=== PATIENT | female | born 1995 | race Caucasian/White ===

== ENCOUNTER 2018-10-08 14:31 | Observation (INO) | payer OTHER ==
[2018-10-08] MEDS ORDERED: Albuterol-Ipratrop 3 mg / 0.5 (3 ml) UD ONE ×2 (14:40→15:22)
[2018-10-08] MEDS ORDERED: Albuterol-Ipratrop 3 mg / 0.5 (3 ml) UD INH STA ×4 (14:47→21:48)
[2018-10-08] MEDS ORDERED: Sodium Chloride 0.9% 1,000 ML IV ONE (15:08)
[2018-10-08] MEDS ORDERED: Sodium Chloride 0.9% 1,000 ML ONE (15:21)
--- NOTE | 2018-10-08 15:56 | C.PDOC ---
History Of Present Illness 23 year old female presents to he emergency department with complaints of cough and wheezing. Patient has a history of asthma but states that only when she gets infections. Her last infection was pneumonia 3 years ago. Patient states that she was never hospitalized, and denies having any nebulizer machines at home. Time Seen by Provider: 10/08/18 15:04 Chief Complaint (Nursing): Shortness Of Breath History Per: Patient History/Exam Limitations: no limitations Onset/Duration Of Symptoms: Hrs Current Respiratory Medications: None Associated Symptoms: Other (cough, wheezing) Past Medical History Reviewed: Historical Data, Nursing Documentation, Vital Signs Vital Signs: Last Vital Signs Temp 98.6 F 10/08/18 14:43 Pulse 126 H 10/08/18 14:43 Resp 24 10/08/18 15:15 BP 126/88 10/08/18 14:43 Pulse Ox 96 10/08/18 15:15 Primary Care Provider: Varun Garibay Surg - Medical History PMH: No Chronic Diseases Surgical History: No Surg Hx Family History: States: No Known Family Hx - Social History Hx Tobacco Use: No Hx Alcohol Use: No Hx Substance Use: No - Immunization History Hx Influenza Vaccination: No Review Of Systems Except As Marked, All Systems Reviewed And Found Negative. Constitutional: Negative for: Fever, Chills, Weakness Cardiovascular: Negative for: Chest Pain Respiratory: Positive for: Cough, Wheezing. Negative for: Shortness of Breath Gastrointestinal: Negative for: Nausea, Vomiting, Abdominal Pain, Diarrhea Genitourinary: Negative for: Dysuria, Frequency Physical Exam - Physical Exam Appears: Non-toxic, In Acute Distress (moderate respiratory distress), Other (young female) Skin: Normal Color, Warm, Dry Head: Atraumatic, Normacephalic Eye(s): bilateral: Normal Inspection, PERRL, EOMI Nose: Normal Oral Mucosa: Moist Neck: Normal, Supple Chest: Symmetrical, No Tenderness Cardiovascular: Rhythm Regular, No Murmur Respiratory: No Rales, No Rhonchi, Wheezing (expiratory and inspiratory wheezing), No Other (egophony) Gastrointestinal/Abdominal: Soft, No Tenderness Extremity: Normal ROM Neurological/Psych: Oriented x3, Normal Speech, Normal Cognition ED Course And Treatment - Laboratory Results Result Diagrams: 10/08/18 16:00 10/08/18 16:00 Lab Interpretation: Abnormal ECG: Interpreted By Me ECG Rhythm: Sinus Tachycardia ECG Interpretation: Abnormal Rate From EC O2 Sat by Pulse Oximetry: 96 (RA) Pulse Ox Interpretation: Normal - Radiology CXR: Interpreted by Me, Viewed By Me, Read By Radiologist CXR Interpretation: Yes: No Acute Disease Progress Note: mild improved, only. no nebs machines @ home. empiric abx for resp tract based on pt's story that asthma exacerbations only with URI's, and leukocytosis with L shift Reevaluation Time: 16:34 Reassessment Condition: Improved - Physician Consult Information Outcome Of Conversation: 1600: d/w Dr. Suarez, Hospitalist, ok to Tele Obs. Critical Care Time - Critical Care Note Total Time (in mins): 90 Documented critical care: time excludes all time spent performing seperately billable procedures. Medical Decision Making Medical Decision Making: Plan: EKG Chemistry CBC CXR Albuterol Solu-Medrol NaCl IV Fluids Zithromax Rocephin Blood Culture HCG Qualitative Urine Urinalysis Disposition Doctor Will See Patient In The: Hospital Counseled Patient/Family Regarding: Studies Performed, Diagnosis - Disposition Disposition: HOSPITALIZED Disposition Time: 16:35 Condition: FAIR - Clinical Impression Clinical Impression: Reactive airway disease - Scribe Statement The provider has reviewed the documentation as recorded by the Scribe (Marcos Rehman) Provider Attestation: All medical record entries made by the Scribe were at my direction and personally dictated by me. I have reviewed the chart and agree that the record accurately reflects my personal performance of the history, physical exam, medical decision making, and the department course for this patient. I have also personally directed, reviewed, and agree with the discharge instructions and disposition.
--- NOTE | 2018-10-08 16:11 | CP.PCM.HP ---
History of Present Illness - History of Present Illness History of Present Illness: PGY1 Medicine H and P for Dr. Suarez This is a 23 year old female with PMH of pneumonia 2 years ago, seasonal allergies who presented to the ED with complaints of wheezing and coughing. Pt started sneezing a lot on tuesday and thought she was having her regular seasonal allergies. Pt started taking OTC Benadryl, 2 tabs at night, that helped her go to sleep. Pt states that she went out drinking on Tuesday and drank a lot of alcohol. She woke up Tuesday morning with a sore throat, back pain and c ough. She proceeded to wake up today with worsening back pain, audible wheezing and coughing productive of yellow/green sputum with specks of blood (hemoptysis resolved). Pt's back pain is upper and middle back pain described as a "crushi ng" sensation. Pt also reports midsternal chest pain when coughing/taking deep breaths. Pt started getting SOB today when walking up the stairs, which worsened when laying down. Pt previously had pneumonia in 2016, but states this feels different. The pt denies any recent travel, car rides longer than 4 hours, diet changes, history of asthma, family history of lung problems, hx of blood clots leg pain or swelling, new detergents, new soaps, new perfume, no pets, headache, nighttime awakenings, visual changes, abdominal pain, n/v/d, dysuria, trauma, numbness or tingling or rash. Recent smoking of cigarettes. PMD: None PMH: pneumonia 2 years ago, seasonal allergies PSH: Tonsillectomy age 12 Meds: Beandryl 25 mg PO PRN as above Allx: NKDA FHx: Grandmother with DM SHx: social etoh, social cigarettes. Denies illicit drug use. Lives with male partner for 4 yearsa, no kids. Born in [place] and up to date on vaccinations. Partner was born in [place]. 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 Present on Admission - Present on Admission Any Indicators Present on Admission: No Review of Systems - Review of Systems All systems: reviewed and no additional remarkable complaints except (as per HPI) Past Patient History - Infectious Disease Hx of Infectious Diseases: None - Past Social History Smoking Status: Never Smoked - PSYCHIATRIC Hx Substance Use: No - SURGICAL HISTORY Hx Surgeries: No Meds Allergies/Adverse Reactions: Allergies Allergy/AdvReac Type Severity Reaction Status Date / Time No Known Allergies Allergy Verified 06/22/15 16:14 Physical Exam - Constitutional Appears: Non-toxic, No Acute Distress - Head Exam Head Exam: ATRAUMATIC, NORMAL INSPECTION - Eye Exam Eye Exam: EOMI, Normal appearance - ENT Exam ENT Exam: Mucous Membranes Moist - Respiratory Exam Respiratory Exam: Clear to Auscultation Bilateral, Wheezes (inspiratory and expiratory wheezes). absent: Decreased Breath Sounds, Rales, Rhonchi, Res piratory Distress, Stridor - Cardiovascular Exam Cardiovascular Exam: Tachycardia, +S1, +S2 - GI/Abdominal Exam GI & Abdominal Exam: Normal Bowel Sounds, Soft. absent: Diminished Bowel Sounds, Distended, Firm, Guarding, Rebound, Rigid, Tenderness - Extremities Exam Extremities exam: Positive for: normal capillary refill, normal inspection, pedal pulses present. Negative for: calf tenderness, pedal edema, tenderness - Back Exam Back exam: NORMAL INSPECTION, paraspinal tenderness (letf midthoracic tenderness to plapation with hypertonicity). absent: CVA tenderness (L), CVA tenderness (R), rash noted - Neurological Exam Neurological exam: Alert, Oriented x3 - Psychiatric Exam Psychiatric exam: Anxious, Normal Affect, Normal Mood - Skin Skin Exam: Dry, Normal Color, Warm Results - Vital Signs Recent Vital Signs: Last Vital Signs Temp 98.6 F 10/08/18 14:43 Pulse 126 H 10/08/18 14:43 Resp 24 10/08/18 15:15 BP 126/88 10/08/18 14:43 Pulse Ox 96 10/08/18 15:56 - Labs Result Diagrams: 10/08/18 16:00 10/08/18 16:00 Assessment & Plan (1) Wheezing Assessment and Plan: Likely allergic component CXR shows no focal infiltrate of effusion. Mild venous congestion. s/p solumedrol 125 mg IM x2 in the ED s/p albuterol/ipratropium 6 mL x3 in the ED s/p rocephin 1 g IVPB x1, Zithromax 500 mg IVPB x1 in the ED s/p NS IVF 1L bolus in the ED Will receive Magnesium 1g IVPB x2 Will start Solumedrol 40 mg IV q12 O2 via NC Leukocytosis of 14.9 likely reactive/secondary to corticosteroids, afebrile, but tachycardic Eosinophil percentage is elevated at 4.1 F/u blood culture, IgE, total eosinophil count, ABG with shock panel, peak flows Status: Acute (2) Tachycardia Assessment and Plan: No longer on albuterol after receiving meds as above EKG shows sinus tachycardia Pt on tele-monitor Mg is 1.6, will receive Magnesium 1g x2 as above UDS negative, Urine HCG is negative Continue to monitor Status: Acute (3) Prophylactic measure Assessment and Plan: Heparin 5000 u SC q12 Protonix 40 mg IVP daily Regular diet Status: Acute - Assessment and Plan (Free Text) Assessment: This is a 23 year old female with PMH of pneumonia 2 years ago, seasonal allergies who presented to the ED with complaints of wheezing and coughing. Noted to have worsening sinus tachycardia after albuterol administration. Case discussed with Dr. Daniela Arvizu PGY1
[2018-10-08 16:12] LABS: HCG,QUALITATIVE URINE NEGATIVE (NEGATIVE)
[2018-10-08 16:15] LABS: BASO # 0.1 K/uL (0.0-0.2); BASO % 0.6 % (0.0-2.0); EOS # 0.6 K/uL (0.0-0.7); EOS % 4.1 % (0.0-4.0); HEMOGLOBIN 13.6 g/dL (11.0-16.0); LYMPH # 2.5 K/uL (1.0-4.3); LYMPH % 17.3 % (20.0-40.0); MEAN CORPUSCULAR HEMOGLOBIN 28.9 pg (27.0-31.0); MEAN CORPUSCULAR HGB CONC 33.9 g/dL (33.0-37.0); MEAN PLATELET VOLUME 7.8 fL (7.2-11.7); MONO # 0.9 K/uL (0.0-0.8); MONO % 6.3 % (0.0-10.0); NEUT # 10.5 K/uL (1.8-7.0); NEUT % 71.7 % (50.0-75.0); RBC 4.7 Mil/uL (3.80-5.20); RED CELL DISTRIBUTION WIDTH 13.6 % (11.5-14.5); WHITE BLOOD COUNT 14.7 K/uL (4.8-10.8)
[2018-10-08 16:16] LABS: SQUAMOUS EPITHIAL 9 /hpf (0-5); URINE BACTERIA FEW (<OCC); URINE BILIRUBIN NEGATIVE (NEGATIVE); URINE BLOOD NEGATIVE (NEGATIVE); URINE CLARITY Hazy (Clear); URINE COLOR Yellow (YELLOW); URINE GLUCOSE (UA) NORMAL (Normal); URINE LEUKOCYTE ESTERASE TRACE Leu/uL (Negative); URINE PROTEIN NEGATIVE (NEGATIVE); URINE UROBILINOGEN NORMAL mg/dL (0.2-1.0)
--- NOTE | 2018-10-08 16:16 | RAD ---
Chest x-ray two views HISTORY: Shortness of breath. Comparison: None available. Findings: No focal infiltrate or effusion. Mild venous congestion. Prominent bibasilar breast and nipple shadows. Heart size within limits. Impression: No focal infiltrate or effusion. Mild venous congestion. Prominent bibasilar breast and nipple shadows.
[2018-10-08 16:28] LABS: ALB/GLOB RATIO 1.4 (1.0-2.1); ALBUMIN 4.6 g/dL (3.5-5.0); ALT/SGPT 26 U/L (9-52); AST/SGOT 33 U/L (14-36); BLOOD UREA NITROGEN 11 mg/dL (7-17); CALCIUM 9.8 mg/dl (8.6-10.4); GFR NON-AFRICAN AMERICAN > 60
[2018-10-08] MEDS ORDERED: Azithromycin 500 MG in Sodium Chloride 0.9% 250 ML IVPB STA (16:31)
[2018-10-08] MEDS ORDERED: cefTRIAXone IV 1 gm in Dextros 50 ML IV ONE (16:31)
[2018-10-08 16:41] LABS: BARBITURATES, UR NEGATIVE (NEGATIVE); BENZODIAZEPINES, UR NEGATIVE (NEGATIVE); OPIATES, UR NEGATIVE (NEGATIVE); PHENCYCLIDINE, UR NEGATIVE (NEGATIVE)
[2018-10-08] MEDS ORDERED: MethylPREDNISolone 40 mg Vial IVP STA (17:09)
[2018-10-08] MEDS: Magnesium Sulfate 1 gm in D5W 1 GM/100 ML BAG IVPB SCH ×2 (18:03→19:57)
[2018-10-08] MEDS: Pantoprazole 40 mg EC Tab PO SCH (18:07)
[2018-10-08 18:48] LABS: ABG ALLEN TEST PO; ARTERIAL BLOOD GAS HCO3 19.7 mmol/L (21-28); ARTERIAL BLOOD GAS O2 SAT 96.9 % (95-98); ARTERIAL BLOOD GAS PCO2 29 mm/Hg (35-45); ARTERIAL BLOOD GAS PH 7.38 (7.35-7.45); ARTERIAL BLOOD GAS PO2 74 mm/Hg (80-100); ARTERIAL BLOOD GAS TCO2 18.1 mmol/L (22-28)
[2018-10-08] MEDS: Budesonide 0.25 mg/2 ml Inhal Susp UD INH SCH (19:04)
[2018-10-08] MEDS: Ipratropium 0.02% Inhal Soln (0.5 mg/2.5 ml) UD IH SCH (19:04)
[2018-10-08 20:14] LABS: PARTIAL THROMBOPLASTIN TIME 31.2 SECONDS (21-34); PROTHROMBIN TIME 11.3 SECONDS (9.7-12.2)
[2018-10-08] MEDS ORDERED: Ipratropium 0.02% Inhal Soln (0.5 mg/2.5 ml) UD IH SCH (20:15)
[2018-10-08 20:22] LABS: D DIMER < 200 ng/mlDDU (0-243)
[2018-10-08 20:25] LABS: CK-MB 0.78 ng/mL (0.0-3.38)
[2018-10-08] MEDS: MethylPREDNISolone 40 mg Vial IVP SCH (21:20)
[2018-10-08] MEDS ORDERED: Iodixanol 320 MG/ML 100 ML BOTTLE IV ONE (23:49)
[2018-10-09] MEDS: Ipratropium 0.02% Inhal Soln (0.5 mg/2.5 ml) UD IH SCH ×4 (03:00→19:18)
[2018-10-09] MEDS: Budesonide 0.25 mg/2 ml Inhal Susp UD INH SCH ×2 (07:20→19:17)
[2018-10-09 07:21] LABS: BASO # 0.1 K/uL (0.0-0.2); BASO % 0.2 % (0.0-2.0); LYMPH # 1.3 K/uL (1.0-4.3); LYMPH % 5.7 % (20.0-40.0); MEAN CELL VOLUME 85.2 fL (81.0-99.0); MEAN CORPUSCULAR HEMOGLOBIN 28.8 pg (27.0-31.0); MEAN CORPUSCULAR HGB CONC 33.8 g/dL (33.0-37.0); MEAN PLATELET VOLUME 7.8 fL (7.2-11.7); MONO # 0.5 K/uL (0.0-0.8); MONO % 2.4 % (0.0-10.0); NEUT # 20.3 K/uL (1.8-7.0); NEUT % 91.7 % (50.0-75.0); PLATELET COUNT 399 K/uL (130-400); RBC 4.53 Mil/uL (3.80-5.20); RED CELL DISTRIBUTION WIDTH 13.9 % (11.5-14.5)
[2018-10-09 07:25] LABS: WHITE BLOOD COUNT 22.2 K/uL (4.8-10.8)
--- NOTE | 2018-10-09 07:46 | CP.PCM.PN ---
<Dara Saleh V - Last Filed: 10/09/18 16:15> Objective - Vital Signs/Intake and Output Vital Signs (last 24 hours): Temp Pulse Resp BP Pulse Ox 98.0 F 80 18 109/72 100 10/09/18 07:00 10/09/18 07:45 10/09/18 07:00 10/09/18 07:00 10/09/18 12:00 - Medications Medications: Current Medications Acetaminophen (Tylenol 325mg Tab) 650 mg PO Q6 PRN PRN Reason: fever/pain Last Admin: 10/09/18 10:06 Dose: 650 mg Budesonide (Pulmicort Respules) 0.25 mg INH RQ12 [facility] Last Admin: 10/09/18 07:20 Dose: Not Given Heparin Sodium (Porcine) (Heparin) 5,000 units SC Q12 [facility] Last Admin: 10/09/18 10:03 Dose: 5,000 units Moxifloxacin HCl (Avelox Iv 400mg/250ml Ns) 400 mg in 250 mls @ 167 mls/hr IVPB Q24H [facility]; Protocol Ipratropium Pickett (Atrovent) 0.5 mg IH RQ6 [facility] Last Admin: 10/09/18 13:20 Dose: 0.5 mg Ipratropium Pickett (Atrovent) 0.5 mg IH Q15MIN [facility] Stop: 10/09/18 20:16 Methylprednisolone (Solu-Medrol) 40 mg IVP Q12 [facility] Last Admin: 10/09/18 10:03 Dose: 40 mg Montelukast Sodium (Singulair) 10 mg PO HS [facility] Last Admin: 10/08/18 22:12 Dose: 10 mg Ondansetron HCl (Zofran Inj) 4 mg IVP Q8H PRN PRN Reason: Nausea/Vomiting Pantoprazole Sodium (Protonix Ec Tab) 40 mg PO DAILY [facility] Last Admin: 10/09/18 10:03 Dose: 40 mg Saccharomyces Boulardii (Florastor) 250 mg PO BID [facility] - Labs Labs: 10/09/18 14:06 10/09/18 07:08 PT 11.3 SECONDS (9.7-12.2) 10/08/18 19:57 INR 1.0 10/08/18 19:57 APTT 31.2 SECONDS (21-34) 10/08/18 19:57 Attending/Attestation - Attestation I have personally seen and examined this patient.: Yes I have fully participated in the care of the patient.: Yes I have reviewed all pertinent clinical information, including history, physical exam and plan: Yes Notes (Text): This is 23 year old with prior medical history of seasonal allergies and prior history of pneumonia 2 years ago comes in to the hospital following a night out with her coworkers wherein she did multiple shots of tequila and 3-4 8 ounce of beers. Patient reports this week her allergies have been acting up with rhinorrhea and nasal drip and required 3 dose of Benadryl during the week. Patient reports muscle soreness over the back area. Noted lactic acid on admission elevated 4.8 and improved slightly to 3.8. suspecting dehydration given recent alcohol use and mild muscle aches and pain. Will check cpk to check rhabdomyolysis. Repeat EKG today shows NSR. Patient to benefit from IV hydration to provide symptom relief from lactic acidosis. We are also awaiting blood cultures which were drawn on admission. CT Chest (10/08/18): patchy ground glass opacities in the right upper, right lower, left lower, and left upper lobe. no pe. no thoracic aortic aneurysm. Will start patient on Avelox to cover for pneumonia. Will observe patient on telemetry for 24 hours. f/u repeat lactate, blood cultures from admission, and serologies for Strep, pneumo, legionella, and mycoplasma IgM 1) Bronchitis Possible Pneumonia SIRS Assessment/Plan SIRS (leukocytosis, tachycardia) and lactic acid (4.8) CT Chest (10/08/18): patchy ground glass opacities in the right upper, right lower, left lower, and left upper lobe. no pe. no thoracic aortic aneurysm. Will start patient on Avelox to cover for pneumonia. f/u repeat lactate, blood cultures from admission, and serologies for Strep, pneumo, legionella, and mycoplasma IgM Avelox 400mg IV daily (active since 10/09/18) Blood culture (10/08/18) pending Throat Culture (10/08/18): pending Serum IGE pending 2) Tachycardia Assessment/Plan CT Chest (10/08/18): patchy ground glass opacities in the right upper, right lower, left lower, and left upper lobe. no pe. no thoracic aortic aneurysm. Will start patient on Avelox to cover for pneumonia. unclear if related to nebulizer versus respiratory distress given this is the season for her allergies to worsen Troponin negative 3) Respiratory Distress Assessment/Plan CT Chest (10/08/18): patchy ground glass opacities in the right upper, right lower, left lower, and left upper lobe. no pe. no thoracic aortic aneurysm. Will start patient on Avelox to cover for pneumonia. f/u repeat lactate, blood cultures from admission, and serologies for Strep, pneumo, legionella, and mycoplasma IgM Atrovent PRN patient recommended when she is stable from hospital to f/u with PMD for outpatient PFTs; she does not have history of asthma, she is not a smoker but her boyfriend is a smoker and lives with him, 2nd hand smoke exposure 4) Tobacco Exposure Assessment/Plan Counselled at bedside 5) Alcohol Use Assessment/Plan Advised against binge drinking Patient is not an alcoholic Patient is not in acute DTs 6) Seasonal Allergies Assessment/Plan pending serum IgE Start Claritin reduce allergic component 7) Prophylactic measure Ambulatory DVT ppx: heparin 5000 units [id number] GI ppx:protonix 40mg PO daily IV hydration Disposition: Will observe patient on telemetry for 24 hours. f/u repeat lactate, blood cultures from admission, and serologies for Strep, pneumo, legionella, and mycoplasma IgM. start IV hydration to improve dehydration. If lactate continues to improve, and blood cultures are negative, will d/c patient on Avelox for 5 day course. <Christian Estrella - Last Filed: 10/09/18 17:52> Subjective - Date & Time of Evaluation Date of Evaluation: 10/09/18 Time of Evaluation: 07:46 - Subjective Subjective: Progress Note for Dr. Saleh She states she is feeling much better than yesterday. She states that her chest pain is currently a 5/10, which is only present when she takes a deep breath. She states she has pain in her upper middle back as well, worse with palpation. She states she initially started with seasonal allergies for which she takes Benadryl and Zyrtec last weekend, that worsened this past weekend after she drank heavily 3 nights ago, drinking 4-5 shots of tequila and a few beers. She states she smoked 2 cigarettes when she drank most recently. She states she woke up with a fever the following day, along with chest pain and back pain. She also states she felt very short of breath with exertion. She states she had pneumonia 2 years ago, which was treated successfully. She states she has never had asthma, never been intubated. She states she had one episode of vomiting last night, with no abdominal pain. She admits to experiencing some urinary frequency without pain or burning. She denies lightheadedness, dizziness, abdominal pain, nausea, diarrhea. She states she has not had a bowel movement since she was admitted here and typically has 2 to 3 BMs daily. Objective - Vital Signs/Intake and Output Vital Signs (last 24 hours): Temp Pulse Resp BP Pulse Ox 98.1 F 106 H 20 114/70 96 10/08/18 23:10 10/09/18 03:52 10/08/18 23:10 10/08/18 23:10 10/08/18 23:13 - Medications Medications: Current Medications Acetaminophen (Tylenol 325mg Tab) 650 mg PO Q6 PRN PRN Reason: fever/pain Last Admin: 10/09/18 02:43 Dose: 650 mg Budesonide (Pulmicort Respules) 0.25 mg INH RQ12 [facility] Last Admin: 10/08/18 19:04 Dose: 0.25 mg Heparin Sodium (Porcine) (Heparin) 5,000 units SC Q12 [facility] Last Admin: 10/08/18 21:20 Dose: 5,000 units Ipratropium Pickett (Atrovent) 0.5 mg IH RQ6 [facility] Last Admin: 10/09/18 03:00 Dose: Not Given Ipratropium Pickett (Atrovent) 0.5 mg IH Q15MIN [facility] Stop: 10/09/18 20:16 Methylprednisolone (Solu-Medrol) 40 mg IVP Q12 [facility] Last Admin: 10/08/18 21:20 Dose: 40 mg Montelukast Sodium (Singulair) 10 mg PO HS [facility] Last Admin: 10/08/18 22:12 Dose: 10 mg Ondansetron HCl (Zofran Inj) 4 mg IVP Q8H PRN PRN Reason: Nausea/Vomiting Pantoprazole Sodium (Protonix Ec Tab) 40 mg PO DAILY [facility] Last Admin: 10/08/18 18:07 Dose: 40 mg - Labs Labs: 10/09/18 07:08 10/08/18 16:00 PT 11.3 SECONDS (9.7-12.2) 10/08/18 19:57 INR 1.0 10/08/18 19:57 APTT 31.2 SECONDS (21-34) 10/08/18 19:57 - Constitutional Appears: Well, No Acute Distress - Head Exam Head Exam: ATRAUMATIC, NORMAL INSPECTION - Eye Exam Eye Exam: EOMI, PERRL - ENT Exam ENT Exam: Mucous Membranes Moist - Neck Exam Neck Exam: Full ROM. absent: Lymphadenopathy, Tenderness - Respiratory Exam Respiratory Exam: Wheezes (Minimal expiratory wheezing). absent: Decreased Breath Sounds, Rales, Stridor - Cardiovascular Exam Cardiovascular Exam: REGULAR RHYTHM, +S1, +S2. absent: Gallop, Rubs Additional comments: HR in 90s on telemetry monitoring - GI/Abdominal Exam GI & Abdominal Exam: Soft, Normal Bowel Sounds. absent: Firm, Guarding, Rigid, Tenderness Additional comments: Dull to percussion - Extremities Exam Extremities Exam: absent: Calf Tenderness, Pedal Edema - Back Exam Back Exam: absent: CVA tenderness (L), CVA tenderness (R) - Neurological Exam Neurological Exam: Alert, Awake, CN II-XII Intact, Oriented x3 - Psychiatric Exam Psychiatric exam: Normal Affect, Normal Mood - Skin Skin Exam: Dry, Intact, Warm Assessment and Plan - Assessment and Plan (Free Text) Assessment: 23 year old female with history of pneumonia 2 years ago, seasonal allergies who presented to the ED with complaints of shortness of breath, wheezing and coughing. Noted to have worsening sinus tachycardia after albuterol administration on admission, currently HR in 90s. Plan: Bronchitis Possible pneumonia Groundglass densities seen on CT Likely allergic in etiology CXR: no focal infiltrate or effusion, with mild venous congestion Patient received Solumedrol 125mg IM X2 in ED, Albuterol/Ipratropium 6ml x3, Rocephin 1g IV X1, Zithromax 500mg x1, NS IV fluids 1L White count increased to 22.2 from 14.7 with bands of 14 Repeat CBC reveals white count 25.6 with bands of 9 Remains afebrile Blood culture prelim negative after 24 hours VBG lactate 4.8. repeat lactate 3.9 NS @ 100cc/hr IV Eosinophil % 4.1 yesterday, [address] angio PE protocol: overnight read - negative for PE or dissection. subsegmental atelctasis of right middle lobe. bilateral multilobular groundglass densitiies. Follow up IgE, Legionella, TSH, T4 Mycoplasma negative Strep negative Meds: Solumedrol 40mg IV Q12 Singulair 10mg PO HS Pulmicort 0.25mcg INH Q12 Claritin 10mg PO daily Atrovent 0.5 IN Q6 [facility] Moxifloxacin 400mg Q24 (start 10/09/18)to cover for CAP Tylenol 650mg PO PRN fever/pain Patient will need outpatient PFTs Palpitations, acute Patient initially noted to be in sinus tachycardia on day of admission, however likely related to Albuterol. Placed on Telemetry monitoring EKG SR 99 ARON panel WNL Mag 2.0 today, improved from 1.6 yesterday Urine tox negative, HCG neg Follow up thyroid studies Upper back pain, likely musculoskeletal in nature Reproducible to palpation Follow up CPK, HIV Alcohol use disorder, chronic Patient advised that her symptoms were likely related to alcohol abuse. Tobacco use disorder, chronic Chronic exposure to tobacco from boyfriend and self Patient herself states that she only smokes when she drinks, however states that her boyfriends smoked as well. Prophylaxis Heparin 5000 units SC Q12 Protonix 40mg IV daily Regular diet Florastor 250mg PO BID Case discussed with Dr. Therese Estrella, PGY1
[2018-10-09 07:53] LABS: ALB/GLOB RATIO 1.3 (1.0-2.1); ALBUMIN 4.2 g/dL (3.5-5.0); ALT/SGPT 29 U/L (9-52); AST/SGOT 22 U/L (14-36); BLOOD UREA NITROGEN 11 mg/dL (7-17); CALCIUM 9.6 mg/dl (8.6-10.4); GFR NON-AFRICAN AMERICAN > 60
[2018-10-09] MEDS: MethylPREDNISolone 40 mg Vial IVP SCH ×2 (10:03→21:47)
[2018-10-09] MEDS: Pantoprazole 40 mg EC Tab PO SCH (10:03)
[2018-10-09 10:39] LABS: BANDS 14 % (0-2); LYMPHOCYTE 6 % (20-40); MONOCYTE 1 % (0-10); NEUTROPHIL 79 % (50-75); PLATELET ESTIMATE NORMAL (NORMAL); TOTAL CELLS COUNTED 100
[2018-10-09 10:40] LABS: LARGE PLATELETS PRESENT
[2018-10-09 12:16] LABS: MYCOPLASMA PNEUMONIAE IGM NEGATIVE (NEGATIVE)
[2018-10-09] MEDS ORDERED: Sodium Chloride 0.9% 250 ML IV ONE (12:27)
--- NOTE | 2018-10-09 13:09 | CT ---
Date of service: 10/09/2018 PROCEDURE: CT Chest with contrast (Pulmonary Angiogram) HISTORY: r/o PE COMPARISON: None available. TECHNIQUE: Axial computed tomography images were obtained of the chest in the pulmonary arterial phase of enhancement. Coronal and sagittal reformatted images were created and reviewed. Intravenous contrast dose: 100 mL Visipaque 320 Radiation dose: Total exam DLP = 546.44 mGy-cm. This CT exam was performed using one or more of the following dose reduction techniques: Automated exposure control, adjustment of the mA and/or kV according to patient size, and/or use of iterative reconstruction technique. FINDINGS: PULMONARY ARTERIES: Unremarkable. No pulmonary embolism. AORTA: No acute findings. No thoracic aortic aneurysm. No aortic atherosclerotic calcification or mural plaque present. LUNGS: Patchy ground-glass opacities in the right upper, right lower, left lower and left upper lobes. Subsegmental right middle lobe atelectasis. PLEURAL SPACES: Unremarkable. No effusion or pneumothorax. HEART: Unremarkable. No cardiomegaly. No significant pericardial effusion. LYMPH NODES: No lymphadenopathy. BONES, CHEST WALL: Unremarkable. No fracture or destructive lesion OTHER FINDINGS: Unremarkable. IMPRESSION: Patchy ground-glass opacities in the right upper, right lower, left lower and left upper lobes, likely infectious/inflammatory in etiology. No pulmonary embolism.
[2018-10-09 14:16] LABS: BASO % 0.1 % (0.0-2.0); HEMOGLOBIN 12.8 g/dL (11.0-16.0); LYMPH # 1.2 K/uL (1.0-4.3); LYMPH % 4.7 % (20.0-40.0); MEAN CELL VOLUME 85.5 fL (81.0-99.0); MEAN CORPUSCULAR HEMOGLOBIN 28.5 pg (27.0-31.0); MEAN CORPUSCULAR HGB CONC 33.4 g/dL (33.0-37.0); MEAN PLATELET VOLUME 7.9 fL (7.2-11.7); MONO # 0.9 K/uL (0.0-0.8); MONO % 3.6 % (0.0-10.0); NEUT # 23.5 K/uL (1.8-7.0); NEUT % 91.6 % (50.0-75.0); PLATELET COUNT 406 K/uL (130-400); RBC 4.49 Mil/uL (3.80-5.20); RED CELL DISTRIBUTION WIDTH 13.9 % (11.5-14.5); WHITE BLOOD COUNT 25.6 K/uL (4.8-10.8)
[2018-10-09 14:49] LABS: CK-MB 0.86 ng/mL (0.0-3.38)
--- NOTE | 2018-10-09 14:55 | CARD ---
APPROVED REPORT Date of service: 10/08/2018 EKG Measurement Heart [id number] NM [id number] <Conclusion> Sinus tachycardia Otherwise normal ECG
--- NOTE | 2018-10-09 14:57 | CARD ---
APPROVED REPORT Date of service: 10/08/2018 EKG Measurement Heart [id number] AR 120P [id number] <Conclusion> Sinus tachycardia Possible Anterior infarct, age undetermined Abnormal ECG
[2018-10-09 15:02] LABS: BANDS 9 % (0-2); LYMPHOCYTE 4 % (20-40); MONOCYTE 1 % (0-10); NEUTROPHIL 86 % (50-75); TOTAL CELLS COUNTED 100
[2018-10-09 15:03] LABS: PLATELET ESTIMATE NORMAL (NORMAL)
[2018-10-09] MEDS: Saccharomyces Boulardi 250 mg Cap PO SCH (17:55)
[2018-10-09] MEDS: Moxifloxacin IV 400mg/250ml NS 400 MG/250 ML BAG IVPB SCH (19:07)
[2018-10-10] MEDS: Ipratropium 0.02% Inhal Soln (0.5 mg/2.5 ml) UD IH SCH ×3 (01:30→13:18)
[2018-10-10 06:47] LABS: HEMOGLOBIN 12.6 g/dL (11.0-16.0); LYMPH # 1.6 K/uL (1.0-4.3); LYMPH % 6.6 % (20.0-40.0); MEAN CELL VOLUME 84.8 fL (81.0-99.0); MEAN CORPUSCULAR HEMOGLOBIN 28.4 pg (27.0-31.0); MEAN CORPUSCULAR HGB CONC 33.5 g/dL (33.0-37.0); MEAN PLATELET VOLUME 7.4 fL (7.2-11.7); MONO # 0.9 K/uL (0.0-0.8); MONO % 3.5 % (0.0-10.0); NEUT # 22.5 K/uL (1.8-7.0); NEUT % 89.9 % (50.0-75.0); PLATELET COUNT 403 K/uL (130-400); RBC 4.44 Mil/uL (3.80-5.20)
[2018-10-10 07:14] LABS: ALB/GLOB RATIO 1.4 (1.0-2.1); ALBUMIN 4.1 g/dL (3.5-5.0); ALT/SGPT 29 U/L (9-52); AST/SGOT 24 U/L (14-36); BLOOD UREA NITROGEN 10 mg/dL (7-17); CALCIUM 9.4 mg/dl (8.6-10.4); GFR NON-AFRICAN AMERICAN > 60
[2018-10-10] MEDS: Budesonide 0.25 mg/2 ml Inhal Susp UD INH SCH (07:28)
--- NOTE | 2018-10-10 07:40 | CP.PCM.PN ---
Subjective - Date & Time of Evaluation Date of Evaluation: 10/10/18 Time of Evaluation: 07:40 - Subjective Subjective: Progress Note for Dr. Saleh Patient seen and examined at bedside. She states that she feels better, rates her chest pain 2/10 worse with breathing. She states she has back pain described as soreness in her upper back. She states she still feels her heart racing. Objective - Vital Signs/Intake and Output Vital Signs (last 24 hours): Temp Pulse Resp BP Pulse Ox 97.8 F 77 20 125/77 96 10/10/18 04:00 10/10/18 04:00 10/10/18 04:00 10/10/18 04:00 10/10/18 04:00 Intake and Output: 10/10/18 10/10/18 06:59 18:59 Intake Total 1050 Balance 1050 - Medications Medications: Current Medications Acetaminophen (Tylenol 325mg Tab) 650 mg PO Q6 PRN PRN Reason: fever/pain Last Admin: 10/10/18 01:11 Dose: 650 mg Budesonide (Pulmicort Respules) 0.25 mg INH RQ12 KATARINA Last Admin: 10/10/18 07:28 Dose: 0.25 mg Heparin Sodium (Porcine) (Heparin) 5,000 units SC Q12 KATARINA Last Admin: 10/09/18 21:46 Dose: 5,000 units Moxifloxacin HCl (Avelox Iv 400mg/250ml Ns) 400 mg in 250 mls @ 167 mls/hr IVPB Q24H KATARINA; Protocol Last Admin: 10/09/18 19:07 Dose: 167 mls/hr Ipratropium [place] (Atrovent) 0.5 mg IH RQ6 KATARINA Last Admin: 10/10/18 07:28 Dose: 0.5 mg Loratadine (Claritin) 10 mg PO DAILY KATARINA Methylprednisolone (Solu-Medrol) 40 mg IVP Q12 KATARINA Last Admin: 10/09/18 21:47 Dose: 40 mg Montelukast Sodium (Singulair) 10 mg PO HS KATARINA Last Admin: 10/09/18 22:21 Dose: 10 mg Ondansetron HCl (Zofran Inj) 4 mg IVP Q8H PRN PRN Reason: Nausea/Vomiting Pantoprazole Sodium (Protonix Ec Tab) 40 mg PO DAILY KATARINA Last Admin: 10/09/18 10:03 Dose: 40 mg Saccharomyces Boulardii (Florastor) 250 mg PO BID KATARINA Last Admin: 10/09/18 17:55 Dose: 250 mg - Labs Labs: 10/10/18 06:28 10/10/18 06:28 PT 11.3 SECONDS (9.7-12.2) 10/08/18 19:57 INR 1.0 10/08/18 19:57 APTT 31.2 SECONDS (21-34) 10/08/18 19:57
[2018-10-10] MEDS ORDERED: Docusate-Senna 50 mg-8.6 mg Tab PO ONE (07:46)
[2018-10-10 08:01] VITALS: RESP 18; O2SAT 97
[2018-10-10 08:32] LABS: BANDS 7 % (0-2); LYMPHOCYTE 11 % (20-40); MONOCYTE 1 % (0-10); NEUTROPHIL 81 % (50-75); PLATELET ESTIMATE NORMAL (NORMAL); TOTAL CELLS COUNTED 100
[2018-10-10] MEDS: Saccharomyces Boulardi 250 mg Cap PO SCH ×2 (09:41→17:32)
[2018-10-10] MEDS: MethylPREDNISolone 40 mg Vial IVP SCH (09:41)
[2018-10-10] MEDS: Pantoprazole 40 mg EC Tab PO SCH (09:41)
[2018-10-10] MEDS ORDERED: Sodium Chloride 0.9% 1,000 ML IV SCH (10:15)
[2018-10-10] MEDS: Moxifloxacin IV 400mg/250ml NS 400 MG/250 ML BAG IVPB SCH (16:14)
--- NOTE | 2018-10-10 16:26 | CP.PCM.DIS ---
Provider - Provider Date of Admission: 10/08/18 15:56 Attending physician: Dara Saleh DO Primary care physician: Axel Louie Time Spent in preparation of Discharge (in minutes): 40 Diagnosis - Discharge Diagnosis (1) Bronchitis Status: Suspected (2) Seasonal allergies Status: Chronic (3) Pneumonia allergic Status: Chronic (4) Tobacco smoke exposure Status: Chronic Hospital Course - Lab Results Lab Results: Micro Results 10/08/18 16:00 Blood Blood Culture - Preliminary NO GROWTH AFTER 48 HOURS 10/09/18 11:32 Throat Group A Strep Throat Culture - Final NO BETA STREP GROUP A ISOLATED. 10/08/18 17:14 Blood Blood Culture - Preliminary NO GROWTH AFTER 24 HOURS Most Recent Lab Values WBC 25.0 K/uL (4.8-10.8) H 10/10/18 06:28 RBC 4.44 Mil/uL (3.80-5.20) 10/10/18 06:28 Hgb 12.6 g/dL (11.0-16.0) 10/10/18 06:28 Hct 37.7 % (34.0-47.0) 10/10/18 06:28 MCV 84.8 fL (81.0-99.0) 10/10/18 06:28 MCH 28.4 pg (27.0-31.0) 10/10/18 06:28 MCHC 33.5 g/dL (33.0-37.0) 10/10/18 06:28 RDW 14.0 % (11.5-14.5) 10/10/18 06:28 Plt Count 403 K/uL (130-400) H 10/10/18 06:28 MPV 7.4 fL (7.2-11.7) 10/10/18 06:28 Neut % (Auto) 89.9 % (50.0-75.0) H 10/10/18 06:28 Lymph % (Auto) 6.6 % (20.0-40.0) L 10/10/18 06:28 [place] % (Auto) 3.5 % (0.0-10.0) 10/10/18 06:28 Eos % (Auto) 0.0 % (0.0-4.0) 10/10/18 06:28 Baso % (Auto) 0.0 % (0.0-2.0) 10/10/18 06:28 Neut # (Auto) 22.5 K/uL (1.8-7.0) H 10/10/18 06:28 Lymph # (Auto) 1.6 K/uL (1.0-4.3) 10/10/18 06:28 [place] # (Auto) 0.9 K/uL (0.0-0.8) H 10/10/18 06:28 Eos # (Auto) 0.0 K/uL (0.0-0.7) 10/10/18 06:28 Baso # (Auto) 0.0 K/uL (0.0-0.2) 10/10/18 06:28 Neutrophils % (Manual) 81 % (50-75) H 10/10/18 06:28 Band Neutrophils % 7 % (0-2) H 10/10/18 06:28 Lymphocytes % (Manual) 11 % (20-40) L 10/10/18 06:28 Monocytes % (Manual) 1 % (0-10) 10/10/18 06:28 Platelet Estimate Normal (NORMAL) 10/10/18 06:28 Large Platelets Present 10/09/18 07:08 RBC Morphology Normal 10/10/18 06:28 Eosinophil Count 0.0 K/uL (0.0-0.7) 10/09/18 07:08 PT 11.3 SECONDS (9.7-12.2) 10/08/18 19:57 INR 1.0 10/08/18 19:57 APTT 31.2 SECONDS (21-34) 10/08/18 19:57 D-Dimer, Quantitative < 200 ng/mlDDU (0-243) 10/08/18 19:57 Puncture Site Rr 10/08/18 18:44 pCO2 29 mm/Hg (35-45) L 10/08/18 18:44 pO2 74 mm/Hg (80-100) L 10/08/18 18:44 HCO3 19.7 mmol/L (21-28) L 10/08/18 18:44 ABG pH 7.38 (7.35-7.45) 10/08/18 18:44 ABG Total CO2 18.1 mmol/L (22-28) L 10/08/18 18:44 ABG O2 Saturation 96.9 % (95-98) 10/08/18 18:44 ABG Base Excess -6.6 mmol/L (-2.0-3.0) L 10/08/18 18:44 Domenic Test Po 10/08/18 18:44 ABG Potassium 2.9 mmol/L (3.6-5.2) L 10/08/18 18:44 A-a O2 Difference 39.0 mm/Hg 10/08/18 18:44 Respiratory Index 0.5 10/08/18 18:44 Sodium 137.0 mmol/l (132-148) 10/08/18 18:44 Chloride 107.0 mmol/L (98-107) 10/08/18 18:44 Glucose 152 mg/dl (65-105) H 10/08/18 18:44 Lactate 4.8 mmol/L (0.7-2.1) H* 10/08/18 18:44 FiO2 21.0 % 10/08/18 18:44 Crit Value Called To Dr russell 10/08/18 18:44 Crit Value Called By Benjamín patterson 10/08/18 18:44 Crit Value Read Back Y 10/08/18 18:44 Blood Gas Notified Time 1847 10/08/18 18:44 Sodium 137 mmol/L (132-148) 10/10/18 06:28 Potassium 4.4 mmol/L (3.6-5.2) 10/10/18 06:28 Chloride 105 mmol/L (98-107) 10/10/18 06:28 Carbon Dioxide 23 mmol/L (22-30) 10/10/18 06:28 Anion Gap 13 (10-20) 10/10/18 06:28 BUN 10 mg/dL (7-17) 10/10/18 06:28 Creatinine 0.5 mg/dL (0.7-1.2) L 10/10/18 06:28 Est GFR ( Amer) > 60 10/10/18 06:28 Est GFR (Non-Af Amer) > 60 10/10/18 06:28 Random Glucose 143 mg/dL (65-105) H 10/10/18 06:28 Lactic Acid 3.0 mmol/L (0.7-2.1) H 10/10/18 14:37 Calcium 9.4 mg/dl (8.6-10.4) 10/10/18 06:28 Phosphorus 3.9 mg/dL (2.5-4.5) 10/10/18 06:28 Magnesium 1.8 mg/dL (1.6-2.3) 10/10/18 06:28 Total Bilirubin 0.1 mg/dL (0.2-1.3) L 10/10/18 06:28 AST 24 U/L (14-36) 10/10/18 06:28 ALT 29 U/L (9-52) 10/10/18 06:28 Alkaline Phosphatase 40 U/L (38-126) 10/10/18 06:28 Total Creatine Kinase 38 U/L (30-135) 10/10/18 06:28 CK-MB (Mass) 0.86 ng/mL (0.0-3.38) 10/09/18 14:10 Troponin I < 0.0120 ng/mL (0.00-0.120) 10/09/18 14:10 Total Protein 7.0 g/dL (6.3-8.3) 10/10/18 06:28 Albumin 4.1 g/dL (3.5-5.0) 10/10/18 06:28 Globulin 3.0 gm/dL (2.2-3.9) 10/10/18 06:28 Albumin/Globulin Ratio 1.4 (1.0-2.1) 10/10/18 06:28 Free T4 0.84 ng/dL (0.78-2.19) 10/09/18 14:10 TSH 3rd Generation 0.28 mIU/L (0.46-4.68) L 10/09/18 14:10 Arterial Blood Potassium 2.9 mmol/L (3.6-5.2) L 10/08/18 18:44 Urine Color Yellow (YELLOW) 10/08/18 16:00 Urine Clarity Hazy (Clear) 10/08/18 16:00 Urine pH 5.0 (5.0-8.0) 10/08/18 16:00 Ur Specific [place] 1.029 (1.003-1.030) 10/08/18 16:00 Urine Protein Negative mg/dL (NEGATIVE) 10/08/18 16:00 Urine Glucose (UA) Normal mg/dL (Normal) 10/08/18 16:00 Urine Ketones Negative mg/dL (NEGATIVE) 10/08/18 16:00 Urine Blood Negative (NEGATIVE) 10/08/18 16:00 Urine Nitrate Negative (NEGATIVE) 10/08/18 16:00 Urine Bilirubin Negative (NEGATIVE) 10/08/18 16:00 Urine Urobilinogen Normal mg/dL (0.2-1.0) 10/08/18 16:00 Ur Leukocyte Esterase Trace [place]/uL (Negative) 10/08/18 16:00 Urine WBC (Auto) 2 /hpf (0-5) 10/08/18 16:00 Urine RBC (Auto) 2 /hpf (0-3) 10/08/18 16:00 Ur Squamous Epith Cells 9 /hpf (0-5) H 10/08/18 16:00 Urine Bacteria Few (<OCC) H 10/08/18 16:00 Urine HCG, Qual Negative (NEGATIVE) 10/08/18 16:00 Urine Opiates Screen Negative (NEGATIVE) 10/08/18 16:00 Urine Methadone Screen Negative (NEGATIVE) 10/08/18 16:00 Ur Barbiturates Screen Negative (NEGATIVE) 10/08/18 16:00 Ur Phencyclidine Scrn Negative (NEGATIVE) 10/08/18 16:00 Ur Amphetamines Screen Negative (NEGATIVE) 10/08/18 16:00 U Benzodiazepines Scrn Negative (NEGATIVE) 10/08/18 16:00 U Oth Cocaine Metabols Negative (NEGATIVE) 10/08/18 16:00 U Cannabinoids Screen Negative (NEGATIVE) 10/08/18 16:00 IgE 860 kU/L (<xo=488) H 10/09/18 11:32 HIV 1&2 Antibody Screen Negative (NEGATIVE) 10/09/18 16:35 Ur L.pneumophila Ag Negative (NEGATIVE) 10/09/18 21:11 Mycoplasma pneumon IgM Negative (NEGATIVE) 10/09/18 11:32 Grp A Beta Strep Ag Negative (NEGATIVE) 10/09/18 11:32 - Hospital Course Hospital Course: On admission: This is a 23 year old female with PMH of pneumonia 2 years ago, seasonal allergies who presented to the ED with complaints of wheezing and coughing. Pt started sneezing a lot on tuesday and thought she was having her regular seasonal allergies. Pt started taking OTC Benadryl, 2 tabs at night, that helped her go t o sleep. Pt states that she went out drinking on Tuesday and drank a lot of alcohol. She woke up Tuesday morning with a sore throat, back pain and c ough. She proceeded to wake up today with worsening back pain, audible wheezing and coughing productive of yellow/green sputum with specks of blood (hemoptysis resolved). Pt's back pain is upper and middle back pain described as a "crushing" sensation. Pt also reports midsternal chest pain when coughing/taking deep breaths. Pt started getting SOB today when walking up the stairs, which worsened when laying down. Pt previously had pneumonia in 2016, but states this feels different. The pt denies any recent travel, car rides longer than 4 hours, diet changes, history of asthma, family history of lung problems, hx of blood clots leg pain or swelling, new detergents, new soaps, new perfume, no pets, headache, nighttime awakenings, visual changes, abdominal pain, n/v/d, dysuria, trauma, numbness or tingling or rash. Recent smoking of cigarettes. Hospital course: Patient was admitted for respiratory distress after she presented with complaints of shortness of breath, wheezing and coughing. She was treated with Solumedrol, Singulair, Pulmicort, Claritin, Atrovent with improvement of symptoms. She was treated with 2 days of Avelox to cover for community acquired pneumonia. She was noted to have elevated serum IgE levels (786 and 860) sug gestive of allergic asthma. She was initially treated with Albuterol however was discontinued after patient developed tachycardia. She remained on telemetry monitoring, and upon discharge she was in sinus rhythm with rate in 70s. EKG and ARON panel were within normal limits. She was noted to have high lactate, however likely due to dehydration since patient was afebrile with negative serology and negative blood and throat cultures. She was noted to have leukocytosis, however likely related to steroid use. HIV, Legionella, Mycoplasma and Strep pneumonia were negative. Upon discharge, patient was saturating well on room air, with lungs clear to auscultation. TSH was slightly low at 0.28 and free T4 0.84, will need to be repeated as outpatient. Patient was advised against excessive alcohol intake and tobacco use including second hand exposure to smoking. Patient was stable for discharge as per Dr. Saleh. Imaging: CT angio: negative for PE. Patchy ground glass opacities in the right upper, right lower, left lower and left upper likely infectious/inflammatory in nature. CXR: no focal infiltrate or effusion Discharge instructions: Patient is stable for discharge, as per Dr. Saleh. Lactate remains elevated at 3.0, however patient is afebrile, negative serology, negative cultures. Please follow up with your primary care provider at [place] for follow up. You will need to repeat your thyroid function tests. You will need a referral for outpatient pulmonary function tests with a tailor garment fitter, you may get a referral from your primary care provider. If you experience palpitations, you may follow up with a shroud line tier. You will need to follow up with an portable irrigation operator for evaluation of possible allergic asthma. If you experience worsening shortness of breath, dizziness, chest pain, please return to the Emergency Department and seek medical attention immediately. Please do not drink excessive amounts of alcohol. Drink 8 large glasses of water every day to stay hydrated. Please do not use any NSAIDS until cleared to do so by a physician. You will be provided with a script for the following Avelox 400mg daily in the morning with breakfast for 3 days. Prednisone 40mg daily for 5 days, to be taken in the morning. Claritin 10mg by mouth once daily Singulair 10mg by mouth once daily Pepcid 20mg by mouth once daily for 5 days Albuterol inhaler use 2 puffs every 6 hours as needed. Please eat Nepali yogurt at lunch time Discharge Exam - Head Exam Head Exam: ATRAUMATIC, NORMAL INSPECTION - Eye Exam Eye Exam: EOMI, PERRL - ENT Exam ENT Exam: Mucous Membranes Moist - Neck Exam Neck exam: Full Rom - Respiratory Exam Respiratory Exam: Clear to PA & Lateral, NORMAL BREATHING PATTERN. absent: Rales, Rhonchi, Wheezes, Respiratory Distress, Stridor - Cardiovascular Exam Cardiovascular Exam: REGULAR RHYTHM, +S1, +S2. absent: Gallop, Rubs, Systolic Murmur - GI/Abdominal Exam GI & Abdominal Exam: Normal Bowel Sounds, Soft. absent: Diminished Bowel Sounds, Distended, Tenderness - Extremities Exam Extremities exam: pedal pulses present Additional comments: no calf tenderness, no pedal edema - Neurological Exam Neurological exam: Alert, Oriented x3 - Psychiatric Exam Psychiatric exam: Normal Affect, Normal Mood - Skin Skin Exam: Dry, Intact, Warm Discharge Plan - Discharge Medications Prescriptions: Albuterol HFA [Ventolin HFA 90 mcg/actuation (8 g)] 2 puff IH [id number] #1 inhaler Famotidine [Pepcid] 20 mg PO DAILY #5 tab Loratadine [Claritin] 10 mg PO DAILY #30 tab Montelukast [Singulair] 10 mg PO HS #30 tab Moxifloxacin [Avelox] 400 mg PO DAILY #3 tab predniSONE [Prednisone] 40 mg PO DAILY 5 Days tab - Follow Up Plan Condition: IMPROVED Disposition: HOME/ ROUTINE Instructions: Asthma, Adult (DC), Moxifloxacin (Systemic), Loratadine, Montelukast, Prednisone Additional Instructions: Patient is stable for discharge, as per Dr. Saleh. Lactate remains elevated at 3.0, however patient is afebrile, negative serology, negative cultures. Please follow up with your primary care provider at [place] for follow up. You will need to repeat your thyroid function tests. You will need a referral for outpatient pulmonary function tests with a tailor garment fitter, you may get a referral from your primary care provider. If you experience palpitations, you may follow up with a shroud line tier. You will need to follow up with an portable irrigation operator for evaluation of possible allergic asthma. If you experience worsening shortness of breath, dizziness, chest pain, please return to the Emergency Department and seek medical attention immediately. Please do not drink excessive amounts of alcohol. Drink 8 large glasses of water every day to stay hydrated. Please do not use any NSAIDS until cleared to do so by a physician. You will be provided with a script for the following Avelox 400mg daily in the morning with breakfast for 3 days. Prednisone 40mg daily for 5 days, to be taken in the morning. Claritin 10mg by mouth once daily Singulair 10mg by mouth once daily Pepcid 20mg by mouth once daily for 5 days Albuterol inhaler use 2 puffs every 6 hours as needed. Please eat Nepali yogurt at lunch time Referrals: [facility] [Provider Group] Glenn Mills MD [Staff Provider] -
[2018-10-10 16:39] VITALS: BP 127/83; PULSE 87; TEMP 97.2
--- NOTE | 2018-10-10 19:21 | CARD ---
APPROVED REPORT Date of service: 10/09/2018 EKG Measurement Heart [id number] <Conclusion> Normal sinus rhythm Normal ECG
[2018-10-11] MEDS ORDERED: MethylPREDNISolone 40 mg Vial IVP SCH (10:00)
== END 2018-10-10 18:40 | disposition home or self-care (01) ==
LOC: C.ER 14:31 → C.9E 15:56 → C.6T 16:20
PROVIDERS: ADMIT Hospitalist; ATTEND Hospitalist
DX: J18.9 Pneumonia, unspecified organism (principal); J45.909 Unspecified asthma, uncomplicated; T38.0X5A Adverse effect of glucocorticoids and synthetic analogues, initial encounter; Z83.3 Family history of diabetes mellitus; Z87.01 Personal history of pneumonia (recurrent); F17.210 Nicotine dependence, cigarettes, uncomplicated; R00.0 Tachycardia, unspecified
CPT/HCPCS: 36415; 71046; 71275; 80053; 80324; 80345; 80346; 80349; 80353; 80358; 80361; 81001; 82550; 82785; 82803; 83605; 83735; 83992; 84100; 84439; 84443; 84484; 84703; 85025; 85048; 85378; 85610; 85730; 86703; 86738; 87040; 87070; 87430; 87449; 93005; 94150; 94640; 96374; 99284; G0378; J0456; J0696; J1644; J2060; J2280; J2765; J2920; J2930; J3475; J7030; J7050; Q9967